=== PATIENT | female | born 1985 | race Caucasian/White ===

== ENCOUNTER → 2016-07-15 | Outpatient (CLI) | payer BC | LOC: MW.CHPS 12:31 | PROVIDERS: ATTEND Plastic Surgery | DX: D86.3 Sarcoidosis of skin (principal) | CPT/HCPCS: 71020 ==

== ENCOUNTER → 2016-07-18 | Outpatient (CLI) | payer BC ==
--- NOTE | 2016-07-18 10:42 | CR ---
EXAMINATION: Two-view chest (PA and Lateral views). HISTORY: Sarcoidosis of the skin FINDINGS: The trachea is midline. The cardiomediastinal silhouette is within normal limits. No pulmonary infil trates, effusions or pneumothorax. Osseous structures appear unremarkable. IMPRESSION: No acute cardiopulmonary process.
== END ==
LOC: MW.DI 08:09
PROVIDERS: ATTEND Plastic Surgery
DX: D86.3 Sarcoidosis of skin (principal)
CPT/HCPCS: 71020; 71020-26

== ENCOUNTER 2018-07-05 17:05 | Inpatient (IN) | payer BC ==
[2018-07-05] MEDS ORDERED: Carboprost Tromethamine 250 MCG/1 ML Amp IM PRN (17:13)
[2018-07-05] MEDS ORDERED: Sodium Chloride 0.9% 10 ML SDV IV PRN (17:13)
[2018-07-05] MEDS ORDERED: Nalbuphine 10 MG/1 ML Vial IVPUSH PRN (17:13)
[2018-07-05] MEDS ORDERED: Water For Irrigation,Sterile 1,000 ML Container IRR PRN (17:13)
[2018-07-05] MEDS ORDERED: Butorphanol 1 MG/ML SDV IVPUSH PRN (17:13)
[2018-07-05] MEDS ORDERED: Ondansetron 4 MG/2 ML SDV IV PRN (17:13)
[2018-07-05] MEDS ORDERED: Misoprostol 200 MCG Tab PO PRN (17:13)
[2018-07-05] MEDS ORDERED: Sodium Chloride 0.9% 2.5 ML Syringe FLUSH PRN (17:13)
[2018-07-05] MEDS ORDERED: Tranexamic Acid 1,000 MG in Sodium Chloride 0.9% 100 ML IV PRN (17:13)
[2018-07-05] MEDS ORDERED: Sodium Chloride 0.9% 10 ML Syringe FLUSH PRN (17:13)
[2018-07-05] MEDS ORDERED: Lidocaine 1% 50 ML MDV INJECT PRN (17:13)
[2018-07-05] MEDS ORDERED: Methylergonovine 0.2 MG/1 ML Amp IM PRN (17:13)
[2018-07-05] MEDS ORDERED: Oxytocin/0.9 % Sodium Chloride 30 UNIT/500 ML BAG IV SCH ×2 (17:15→18:30)
--- NOTE | 2018-07-05 18:20 | PCM.LDHP ---
L&D History of Present Illness - General Date of Service: 07/05/18 Admit Problem/Dx: Patient Status Order with Admit Dx/Problem 07/05/18 17:13 Patient Status [ADT] Routine Admission Diagnosis/Problem Admission Diagnosis/Problem 07/05/18 18:14 32yo EDC 07/05/2018 40 0/7wks SROM clear at 0900 today, A+, RI, GBS neg. Source of Information: Patient History Limitations: Reports: No Limitations - History of Present Illness Improves with: Reports: None Worsens with: Reports: None Associated Symptoms: Reports: N - Related Data Allergies/Adverse Reactions: Allergies Allergy/AdvReac Type Severity Reaction Status Date / Time No Known Allergies Allergy Verified 07/21/15 11:53 Home Medications: Home Meds Pnv95/Iron Fum/Folic Acid [ Caplet] 1 cap PO DAILY 07/21/15 [History] Past Medical History - Past Health History Medical/Surgical History: Denies Medical/Surgical History HEENT History: Reports: None Cardiovascular History: Reports: None Respiratory History: Reports: None Gastrointestinal History: Reports: None Genitourinary History: Reports: None 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: , Other (See Below) Other OB/BYN History: ovarian cyst, infertility Musculoskeletal History: Reports: None Psychiatric History: Reports: None Hematologic History: Reports: None Dermatologic History: Reports: None - Past Surgical History HEENT Surgical History: Reports: Oral Surgery Social & Family History - Family History Family Medical History: Noncontributory HEENT: Reports: None Cardiac: Reports: None Respiratory: Reports: None GI: Reports: None : Reports: None OBGYN: Reports: None Musculoskeletal: Reports: None Neurological: Reports: None Psychiatric: Reports: None Endocrine/Metabolic: Reports: None Hematologic: Reports: None Immunologic: Reports: None Dermatologic: Reports: None Oncologic: Reports: None H&P Review of Systems - Review of Systems: Review Of Systems: See Below General: Reports: No Symptoms HEENT: Reports: No Symptoms Pulmonary: Reports: No Symptoms Cardiovascular: Reports: No Symptoms Gastrointestinal: Reports: No Symptoms Genitourinary: Reports: No Symptoms Musculoskeletal: Reports: No Symptoms Skin: Reports: No Symptoms Psychiatric: Reports: No Symptoms Neurological: Reports: No Symptoms Hematologic/Lymphatic: Reports: No Symptoms Immunologic: Reports: No Symptoms L&D Exam - Exam Exam: See Below - OB Specific Contraction Intensity: Irritability Movement: Active Heart Tones: Present Heart Rate (FHR) Variability: Moderate (6-25 bmp) Presentation: Vertex - Evans Score Evans Score Cervix Position: Posterior Evans Score Consistency: Soft Evans Score Effacement: >80% Evans Score Dilation: 3-4 cm Evans Score 's Station: -2 Evans Score Total: 8 - Exam General: Alert, Oriented, Cooperative HEENT: Hearing Intact Lungs: Normal Respiratory Effort GI/Abdominal Exam: Soft, Non-Tender Rectal Exam: Deferred Genitourinary: Normal external exam, Normal bimanual exam, Cervical dilitation, Cervical fluid Back Exam: Normal Inspection, Full Range of Motion Extremities: Normal Inspection, Normal Range of Motion, Non-Tender, No Pedal Edema Skin: Warm, Dry, Intact Neurological: Cranial Nerves Intact, Normal Speech, Normal Tone Psychiatric: Alert, Normal Affect, Normal Mood - Patient Data Lab Results Last 24 hrs: Laboratory Results - last 24 hr 07/05/18 Range/Units 17:35 WBC 9.89 (4.0-11.0) K/uL RBC 3.52 L (4.30-5.90) M/uL Hgb 10.4 L (12.0-16.0) g/dL Hct 31.8 L (36.0-46.0) % MCV 90.3 (80.0-98.0) fL MCH 29.5 (27.0-32.0) pg MCHC 32.7 (31.0-37.0) g/dL RDW Std Deviation 44.8 (28.0-62.0) fl RDW Coeff of Pérez 14 (11.0-15.0) % Plt Count 270 (150-400) K/uL MPV 9.70 (7.40-12.00) fL Nucleated RBC % 0.0 /100WBC Nucleated RBCs # 0 K/uL Result Diagrams: 07/05/18 17:35 - Problem List (1) Supervision of normal IUP (intrauterine ) in multigravida SNOMED Code(s): 549435691, 858504721, 769926521 ICD Code: Z34.80 - ENCOUNTER FOR SUPRVSN OF NORMAL , UNSP TRIMESTER Status: Acute Priority: High Current Visit: Yes Qualifiers: Trimester: third trimester Qualified Code(s): Z34.83 - Encounter for supervision of other normal , third trimester (2) SROM (spontaneous rupture of membranes) SNOMED Code(s): 818508189 ICD Code: [id number] - Status: Acute Priority: High Current Visit: Yes Problem List Initiated/Reviewed/Updated: Yes Orders Last 24hrs: Active Orders 24 hr Category Date Time Status Patient Status [ADT] Routine ADT 07/05/18 17:13 Active Heart Tones [RC] CONTINUOUS Care 07/05/18 17:13 Active Non Stress Test [RC] PER UNIT ROUTINE Care 07/05/18 17:13 Active May Shower [RC] ASDIRECTED Care 07/05/18 17:13 Active Notify Provider [RC] PRN Care 07/05/18 17:13 Active Up ad Yenifer [RC] ASDIRECTED Care 07/05/18 17:13 Active Vaginal Exam [RC] PRN Care 07/05/18 17:13 Active Vital Signs [RC] PER UNIT ROUTINE Care 07/05/18 17:13 Active TYPE AND SCREEN [BBK] Routine Lab 07/05/18 17:35 Received Butorphanol [Stadol] Med 07/05/18 17:13 Active 1 mg IVPUSH Q1H PRN Carboprost Tromethamine [Hemabate DS] Med 07/05/18 17:13 Active 250 mcg IM ASDIRECTED PRN Lactated Ringers [Ringers, Lactated] 1,000 ml Med 07/05/18 17:15 Active IV ASDIRECTED Lidocaine 1% [Xylocaine 1%] Med 07/05/18 17:13 Active 50 ml INJECT ONETIME PRN Methylergonovine [Methergine] Med 07/05/18 17:13 Active 0.2 mg IM ASDIRECTED PRN Nalbuphine [Nubain] Med 07/05/18 17:13 Active 10 mg IVPUSH Q1H PRN Ondansetron [Zofran] Med 07/05/18 17:13 Active 4 mg IV Q6H PRN Oxytocin/0.9 % Sodium Chloride [Oxytocin 30 Unit/500 ML Med 07/05/18 17:15 Active -NS] 30 unit in 500 ml IV TITRATE Sodium Chloride 0.9% [Normal Saline] Med 07/05/18 17:13 Active 10 ml IV ASDIRECTED PRN Sodium Chloride 0.9% [Saline Flush] Med 07/05/18 17:13 Active 10 ml FLUSH ASDIRECTED PRN Sodium Chloride 0.9% [Saline Flush] Med 07/05/18 17:13 Active 2.5 ml FLUSH ASDIRECTED PRN Tranexamic Acid [Cyklokapron] 1,000 mg Med 07/05/18 17:13 Active Sodium Chloride 0.9% [Normal Saline] 100 ml IV ONETIME Water For Irrigation,Sterile [Sterile Water for Med 07/05/18 17:13 Active Irrigation] 1,000 ml IRR ASDIRECTED PRN miSOPROStol [Cytotec] Med 07/05/18 17:13 Active 200 mcg PO ONETIME PRN Scalp Electrode [WOMSER] Per Unit Routine Oth 07/05/18 17:13 Ordered Peripheral IV Insertion Adult [OM.PC] Routine Oth 07/05/18 17:13 Ordered Resuscitation Status Routine Resus Stat 07/05/18 17:13 Ordered Medication Orders Butorphanol Tartrate (Stadol) 1 mg IVPUSH Q1H PRN PRN Reason: Pain Carboprost Tromethamine (Hemabate Ds) 250 mcg IM ASDIRECTED PRN PRN Reason: Post Hemorrhage Lactated Ringer's (Ringers, Lactated) 1,000 mls @ 150 mls/hr IV ASDIRECTED BALA Oxytocin/Sodium Chloride (Oxytocin 30 Unit/500 Ml-Ns) 30 unit in 500 mls @ 999 mls/hr IV TITRATE BALA Tranexamic Acid 1,000 mg/ (Sodium Chloride) 110 mls @ 660 mls/hr IV ONETIME PRN PRN Reason: Bleeding Lidocaine HCl (Xylocaine 1%) 50 ml INJECT ONETIME PRN PRN Reason: Laceration repair Methylergonovine Maleate (Methergine) 0.2 mg IM ASDIRECTED PRN PRN Reason: Post Hemorrhage Misoprostol (Cytotec) 200 mcg PO ONETIME PRN PRN Reason: Post Hemorrhage Nalbuphine HCl (Nubain) 10 mg IVPUSH Q1H PRN PRN Reason: Pain (severe 7-10) Ondansetron HCl (Zofran) 4 mg IV Q6H PRN PRN Reason: Nausea/Vomiting Sodium Chloride (Saline Flush) 10 ml FLUSH ASDIRECTED PRN PRN Reason: Keep Vein Open Sodium Chloride (Saline Flush) 2.5 ml FLUSH ASDIRECTED PRN PRN Reason: Keep Vein Open Sodium Chloride (Normal Saline) 10 ml IV ASDIRECTED PRN PRN Reason: IV Use Sterile Water (Sterile Water For Irrigation) 1,000 ml IRR ASDIRECTED PRN PRN Reason: delivery Assessment/Plan Comment:: SROM Labor A: 32yo EDC 07/05/2018 40 0/7wks SROM clear at 0900 today, A+, RI, GBS neg. P: Admit, epidural prn, pitocin, will start amp if not delivered by 0300. Antic[address] . Dr Gutiérrez updated
[2018-07-05] MEDS ORDERED: Terbutaline 1 MG/ML SDV SUBCUT PRN (18:21)
[2018-07-05] MEDS ORDERED: Misoprostol 25 MCG (1/4 of 100 MCG) Tab PO PRN (18:38)
[2018-07-05] MEDS ORDERED: Misoprostol 25 MCG (1/4 of 100 MCG) Tab VAG PRN (18:38)
[2018-07-05] MEDS: Lactated Ringers 1,000 ML IV SCH ×2 (19:20→23:07)
[2018-07-06] MEDS ORDERED: fentaNYL 100 MCG/2 ML SDV ONE (00:02)
[2018-07-06] MEDS ORDERED: Ropivacaine HCl/PF 100 ML ONE (00:02)
--- NOTE | 2018-07-06 00:47 | PCM.PREANE ---
Preanesthetic Assessment - Anesthesia/Transfusion/Family Hx Anesthesia History: Prior Anesthesia Without Reaction Family History of Anesthesia Reaction: No Transfusion History: No Prior Transfusion(s) Intubation History: Unknown - Review of Systems General: No Symptoms Pulmonary: No Symptoms Cardiovascular: No Symptoms Gastrointestinal: No Symptoms Neurological: No Symptoms Other: Reports: None - Physical Assessment NPO Status Date: 07/06/18 NPO Status Time: 00:00 Blood Pressure: 118/73 Height: 5 ft 9 in Weight: 172 lb ASA Class: 2 Mental Status: Alert & Oriented x3 Airway Class: Mallampati = 2 Dentition: Reports: Normal Dentition Thyro-Mental Finger Breadths: 3 Mouth Opening Finger Breadths: 3 - Lab Values: Laboratory Last Values WBC 9.89 K/uL (4.0-11.0) 07/05/18 17:35 RBC 3.52 M/uL (4.30-5.90) L 07/05/18 17:35 Hgb 10.4 g/dL (12.0-16.0) L 07/05/18 17:35 Hct 31.8 % (36.0-46.0) L 07/05/18 17:35 MCV 90.3 fL (80.0-98.0) 07/05/18 17:35 MCH 29.5 pg (27.0-32.0) 07/05/18 17:35 MCHC 32.7 g/dL (31.0-37.0) 07/05/18 17:35 RDW Std Deviation 44.8 fl (28.0-62.0) 07/05/18 17:35 RDW Coeff of Pérez 14 % (11.0-15.0) 07/05/18 17:35 Plt Count 270 K/uL (150-400) 07/05/18 17:35 MPV 9.70 fL (7.40-12.00) 07/05/18 17:35 Nucleated RBC % 0.0 /100WBC 07/05/18 17:35 Nucleated RBCs # 0 K/uL 07/05/18 17:35 Blood Type A POSITIVE 07/05/18 17:35 Antibody Screen NEGATIVE 07/05/18 17:35 - Allergies Allergies/Adverse Reactions: Allergies Allergy/AdvReac Type Severity Reaction Status Date / Time No Known Allergies Allergy Verified 07/21/15 11:53 - Blood Blood Available: No Product(s) Available: None - Anesthesia Plan Free Text/Narrative:: Labor Epidural Pre-Op Medication Ordered: None - Acknowledgements Anesthesia Type Planned: Epidural Pt an Appropriate Candidate for the Planned Anesthesia: Yes Alternatives and Risks of Anesthesia Discussed w Pt/Guardian: Yes Pt/Guardian Understands and Agrees with Anesthesia Plan: Yes PreAnesthesia Questionnaire - Past Health History Medical/Surgical History: Denies Medical/Surgical History HEENT History: Reports: None Cardiovascular History: Reports: None Respiratory History: Reports: None Gastrointestinal History: Reports: None Genitourinary History: Reports: None Other Genitourinary History: "Kidney stones, maybe a decade ago" 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: , Other (See Below) Other OB/BYN History: ovarian cyst, infertility Musculoskeletal History: Reports: None Psychiatric History: Reports: None Other Psychiatric History: was treated years ago, no longer in treatment Hematologic History: Reports: Anemia Dermatologic History: Reports: None - Infectious Disease History Infectious Disease History: Reports: Chicken Pox - Past Surgical History HEENT Surgical History: Reports: Oral Surgery - SUBSTANCE USE Smoking Status *Q: Never Smoker Second Hand Smoke Exposure: No Recreational Drug Use History: No - HOME MEDS Home Medications: Home Meds Pnv95/Iron Fum/Folic Acid [ Caplet] 1 cap PO DAILY 07/21/15 [History] - CURRENT (IN HOUSE) MEDS Current Meds: Current Medications Butorphanol Tartrate (Stadol) 1 mg IVPUSH Q1H PRN PRN Reason: Pain Carboprost Tromethamine (Hemabate Ds) 250 mcg IM ASDIRECTED PRN PRN Reason: Post Hemorrhage Lactated Ringer's (Ringers, Lactated) 1,000 mls @ 150 mls/hr IV ASDIRECTED BALA Last Admin: 07/05/18 23:07 Dose: 999 mls/hr Oxytocin/Sodium Chloride (Oxytocin 30 Unit/500 Ml-Ns) 30 unit in 500 mls @ 999 mls/hr IV TITRATE BALA Tranexamic Acid 1,000 mg/ (Sodium Chloride) 110 mls @ 660 mls/hr IV ONETIME PRN PRN Reason: Bleeding Oxytocin/Sodium Chloride (Oxytocin 30 Unit/500 Ml-Ns) 30 unit in 500 mls @ 2 mls/hr IV TITRATE BALA; Protocol Last Titration: 07/05/18 22:55 Dose: 4 munits/min, 4 mls/hr Lidocaine HCl (Xylocaine 1%) 50 ml INJECT ONETIME PRN PRN Reason: Laceration repair Methylergonovine Maleate (Methergine) 0.2 mg IM ASDIRECTED PRN PRN Reason: Post Hemorrhage Misoprostol (Cytotec) 200 mcg PO ONETIME PRN PRN Reason: Post Hemorrhage Misoprostol (Cytotec) 25 mcg VAG ONETIME PRN PRN Reason: Cervical Ripening Last Admin: 07/05/18 18:52 Dose: 25 mcg Misoprostol (Cytotec) 25 mcg PO ONETIME PRN PRN Reason: Cervical Ripening Last Admin: 07/05/18 18:49 Dose: 25 mcg Nalbuphine HCl (Nubain) 10 mg IVPUSH Q1H PRN PRN Reason: Pain (severe 7-10) Ondansetron HCl (Zofran) 4 mg IV Q6H PRN PRN Reason: Nausea/Vomiting Sodium Chloride (Saline Flush) 10 ml FLUSH ASDIRECTED PRN PRN Reason: Keep Vein Open Sodium Chloride (Saline Flush) 2.5 ml FLUSH ASDIRECTED PRN PRN Reason: Keep Vein Open Sodium Chloride (Normal Saline) 10 ml IV ASDIRECTED PRN PRN Reason: IV Use Sterile Water (Sterile Water For Irrigation) 1,000 ml IRR ASDIRECTED PRN PRN Reason: delivery Terbutaline Sulfate (Brethine) 0.25 mg SUBCUT ASDIRECTED PRN PRN Reason: Tacysystole Discontinued Medications Fentanyl (Sublimaze) Confirm Administered Dose 100 mcg .ROUTE .STK-MED ONE Stop: 07/06/18 00:03 Ropivacaine (Naropin 0.2%) Confirm Administered Dose 100 mls @ as directed .ROUTE .STK-MED ONE Stop: 07/06/18 00:03
[2018-07-06] MEDS: Lactated Ringers 1,000 ML IV SCH ×3 (01:10→03:11)
[2018-07-06] MEDS ORDERED: ePHEDrine 50 MG/ML SDV ONE (01:41)
[2018-07-06] MEDS ORDERED: Ampicillin 2 GM in Sodium Chloride 0.9% 100 ML IV ONE (03:00)
[2018-07-06] MEDS ORDERED: Ampicillin 2 GM AdvVial IV ONE (03:05)
[2018-07-06] MEDS ORDERED: Sodium Chloride 0.9% 100 ML ONE (03:05)
[2018-07-06] MEDS ORDERED: Ampicillin 1 GM in Sodium Chloride 0.9% 50 ML IV SCH (07:00)
[2018-07-06] MEDS ORDERED: Docusate Sodium 100 MG Cap PO PRN (11:20)
[2018-07-06] MEDS ORDERED: Benzocaine/Menthol 20%-0.5% Spray 78 GM Cannister TOP PRN (11:20)
[2018-07-06] MEDS ORDERED: Witch Hazel Medicated Pads 40/Jar TOP PRN (11:20)
[2018-07-06] MEDS ORDERED: Ibuprofen 800 MG Tab PO PRN (11:20)
[2018-07-06] MEDS ORDERED: Ibuprofen 400 MG Tab PO PRN (11:20)
[2018-07-06] MEDS ORDERED: Bisacodyl 10 MG Supp RECTAL PRN (11:20)
[2018-07-06] MEDS ORDERED: Acetaminophen 500 MG Tab PO PRN ×2 (11:20)
[2018-07-06] MEDS ORDERED: Lanolin 100% Cream 7 GM Tube TOP PRN (11:20)
[2018-07-06] MEDS ORDERED: oxyCODONE 5 MG Tab PO PRN (11:20)
--- NOTE | 2018-07-06 17:03 | OR ---
SURGEON: Alexander Gutiérrez MD DATE OF PROCEDURE: DELIVERY NOTE: Lucie is a 32-year-old patient. She is para 1-0-0-1. She is followed in our clinic primarily by our nurse human resources compliance manager. The patient is admitted in active labor and at the time of the admission, she is 5 to 6 cm. She progressed and then she had epidural anesthesia for labor analgesia. The patient became complete- complete. She had rupture of the membrane with clear fluid. After she became complete-complete, she pushed 3-1/2 hours without any accomplishing of vaginal delivery. I was asked for consultation and assessment. When I examined the patient, she was complete-complete, vertex, 0 to +1 station and she was occiput posterior. Presented the fact to the patient and her and we agreed to do a vacuum extraction and after obtaining the consent of the parent, the patient was placed in lithotomy position, and bladder was emptied and Kiwi vacuum extraction is applied easily without any problem with the patient , and I am trying to guiding the head down with pulling. I was able to accomplish a vaginal with 2 pulls without any problem. Perineal first- degree laceration is happened during the process of the delivery. The fetus cried immediately. score and the weight are not available at this time. The placenta delivered spontaneous, complete, and intact and the first-degree laceration was repaired with 3-0 Vicryl in layer without any problem. ESTIMATED BLOOD LOSS: 250 to 300 mL. heart rate was category 1 through the entire process of labor. At the time of the delivery, it is noted that the patient had 2 nuchal cord. There was no complication in the labor and delivery of this patient. ABELINO / NICOLE /[id number]
--- NOTE | 2018-07-07 08:54 | PCM.DCSUM1 ---
Discharge Summary - Hospital Course Free Text/Narrative:: Discharge home with . Follow up 6 weeks for . Diagnosis: Stroke: No - Discharge Data Discharge Date: 07/07/18 Discharge Disposition: Home, Self-Care 01 Condition: Good - Discharge Diagnosis/Problem(s) (1) Supervision of normal IUP (intrauterine ) in multigravida SNOMED Code(s): 758802246, 538212414, 467525978 ICD Code: Z34.80 - ENCOUNTER FOR SUPRVSN OF NORMAL , UNSP TRIMESTER Status: Acute Priority: High Current Visit: Yes Qualifiers: Trimester: third trimester Qualified Code(s): Z34.83 - Encounter for supervision of other normal , third trimester (2) SROM (spontaneous rupture of membranes) SNOMED Code(s): 004664487 ICD Code: DTS8100 - Status: Acute Priority: High Current Visit: Yes - Patient Instructions Diet: Usual Diet as Tolerated Activity: As Tolerated, No Strenuous Activities, Rest and Relax Today Driving: May Drive Today Showering/Bathing: May Shower Notify Provider of: Fever, Increased Pain, Swelling and Redness, Nausea and/or Vomiting Other/Special Instructions: Discharge home with infant. Follow up 6 weeks for . - Discharge Plan *PRESCRIPTION DRUG MONITORING PROGRAM REVIEWED*: Not Applicable *COPY OF PRESCRIPTION DRUG MONITORING REPORT IN PATIENT JULIAN: Not Applicable Prescriptions/Med Rec: Ibuprofen [Motrin] 800 mg PO Q6H PRN #90 tablet PRN Reason: Pain Home Medications: Home Meds Pnv95/Iron Fum/Folic Acid [ Caplet] 1 cap PO DAILY 07/21/15 [History] Ibuprofen [Motrin] 800 mg PO Q6H PRN #90 tablet 07/07/18 [Rx] Oxygen Therapy Mode: Room Air Referrals: [facility] [Outside] Gilma Villasenor CNM [Mid-] - 08/17/18 9:30 am (6 week post ) - Discharge Summary/Plan Comment DC Time >30 min.: Yes - General Info Date of Service: 07/07/18 Admission Dx/Problem (Free Text: Patient Status Order with Admit Dx/Problem 07/05/18 17:13 Patient Status [ADT] Routine Admission Diagnosis/Problem Admission Diagnosis/Problem 07/05/18 18:14 32yo EDC 07/05/2018 40 0/7wks SROM clear at 0900 today, A+, RI, GBS neg. Functional Status: Reports: Pain Controlled, Tolerating Diet, Ambulating, Urinating - Review of Systems General: Reports: No Symptoms HEENT: Reports: No Symptoms Pulmonary: Reports: No Symptoms Cardiovascular: Reports: No Symptoms Gastrointestinal: Reports: No Symptoms Genitourinary: Reports: No Symptoms Musculoskeletal: Reports: No Symptoms Skin: Reports: No Symptoms Neurological: Reports: No Symptoms Psychiatric: Reports: No Symptoms - Patient Data Vitals - Most Recent: Last Vital Signs Temp 36.8 C 07/07/18 07:30 Pulse 87 07/07/18 07:30 Resp 16 07/07/18 07:30 BP 112/59 L 07/07/18 07:30 Pulse Ox 97 07/07/18 07:30 Weight - Most Recent: 78.018 kg Lab Results - Last 24 hrs: Laboratory Results - last 24 hr 07/07/18 Range/Units 04:57 Hgb 10.0 L (12.0-16.0) g/dL Hct 31.2 L (36.0-46.0) % Med Orders - Current: Current Medications Acetaminophen (Tylenol Extra Strength) 500 mg PO Q4H PRN PRN Reason: Pain Acetaminophen (Tylenol Extra Strength) 1,000 mg PO Q4H PRN PRN Reason: Pain Last Admin: 07/06/18 19:57 Dose: 1,000 mg Benzocaine/Menthol (Dermoplast Pain Relief 20%-0.5% [place]) 78 gm TOP ASDIRECTED PRN PRN Reason: Perineal Comfort Measure Last Admin: 07/06/18 14:38 Dose: 1 can Bisacodyl (Dulcolax) 10 mg RECTAL ONETIME PRN PRN Reason: Constipation Butorphanol Tartrate (Stadol) 1 mg IVPUSH Q1H PRN PRN Reason: Pain Carboprost Tromethamine (Hemabate Ds) 250 mcg IM ASDIRECTED PRN PRN Reason: Post Hemorrhage Docusate Sodium (Colace) 100 mg PO BID PRN PRN Reason: Constipation Emollient Ointment (Lansinoh Hpa) 0 gm TOP ASDIRECTED PRN PRN Reason: Sore Nipples Lactated Ringer's (Ringers, Lactated) 1,000 mls @ 150 mls/hr IV ASDIRECTED BALA Last Admin: 07/06/18 03:11 Dose: 150 mls/hr Oxytocin/Sodium Chloride (Oxytocin 30 Unit/500 Ml-Ns) 30 unit in 500 mls @ 999 mls/hr IV TITRATE BALA Tranexamic Acid 1,000 mg/ (Sodium Chloride) 110 mls @ 660 mls/hr IV ONETIME PRN PRN Reason: Bleeding Oxytocin/Sodium Chloride (Oxytocin 30 Unit/500 Ml-Ns) 30 unit in 500 mls @ 2 mls/hr IV TITRATE [facility]; Protocol Last Titration: 07/06/18 06:30 Dose: 20 munits/min, 20 mls/hr Ampicillin Sodium 1 gm/ Sodium (Chloride) 50 mls @ 100 mls/hr IV Q4H BALA Last Admin: 07/06/18 07:16 Dose: 100 mls/hr Ibuprofen (Motrin) 400 mg PO Q4H PRN PRN Reason: Pain Ibuprofen (Motrin) 800 mg PO Q6H PRN PRN Reason: Pain Last Admin: 07/06/18 14:37 Dose: 800 mg Lidocaine HCl (Xylocaine 1%) 50 ml INJECT ONETIME PRN PRN Reason: Laceration repair Methylergonovine Maleate (Methergine) 0.2 mg IM ASDIRECTED PRN PRN Reason: Post Hemorrhage Misoprostol (Cytotec) 200 mcg PO ONETIME PRN PRN Reason: Post Hemorrhage Misoprostol (Cytotec) 25 mcg VAG ONETIME PRN PRN Reason: Cervical Ripening Last Admin: 07/05/18 18:52 Dose: 25 mcg Misoprostol (Cytotec) 25 mcg PO ONETIME PRN PRN Reason: Cervical Ripening Last Admin: 07/05/18 18:49 Dose: 25 mcg Nalbuphine HCl (Nubain) 10 mg IVPUSH Q1H PRN PRN Reason: Pain (severe 7-10) Ondansetron HCl (Zofran) 4 mg IV Q6H PRN PRN Reason: Nausea/Vomiting Oxycodone HCl (Oxycodone) 5 mg PO Q2H PRN PRN Reason: Pain Sodium Chloride (Saline Flush) 10 ml FLUSH ASDIRECTED PRN PRN Reason: Keep Vein Open Sodium Chloride (Saline Flush) 2.5 ml FLUSH ASDIRECTED PRN PRN Reason: Keep Vein Open Sodium Chloride (Normal Saline) 10 ml IV ASDIRECTED PRN PRN Reason: IV Use Sterile Water (Sterile Water For Irrigation) 1,000 ml IRR ASDIRECTED PRN PRN Reason: delivery Terbutaline Sulfate (Brethine) 0.25 mg SUBCUT ASDIRECTED PRN PRN Reason: Tacysystole Witch Dyana (Tucks) 1 pad TOP ASDIRECTED PRN PRN Reason: comfort care Last Admin: 07/06/18 14:37 Dose: 1 tub Discontinued Medications Ampicillin Sodium (Ampicillin) Confirm Administered Dose 2 gm IV .STK-MED ONE Stop: 07/06/18 03:06 Ephedrine Sulfate (Ephedrine Sulfate) Confirm Administered Dose 50 mg .ROUTE .STK-MED ONE Stop: 07/06/18 01:42 Fentanyl (Sublimaze) Confirm Administered Dose 100 mcg .ROUTE .STK-MED ONE Stop: 07/06/18 00:03 Ropivacaine (Naropin 0.2%) Confirm Administered Dose 100 mls @ as directed .ROUTE .STK-MED ONE Stop: 07/06/18 00:03 Ampicillin Sodium 2 gm/ Sodium (Chloride) 100 mls @ 200 mls/hr IV ONETIME ONE Stop: 07/06/18 03:29 Last Admin: 07/06/18 03:09 Dose: 200 mls/hr Sodium Chloride (Normal Saline) Confirm Administered Dose 100 mls @ as directed .ROUTE .STK-MED ONE Stop: 07/06/18 03:06 - Exam General: Reports: Alert, Oriented, Cooperative, No Acute Distress Lungs: Reports: Normal Respiratory Effort GI/Abdominal Exam: Soft, Non-Tender (Female) Exam: Deferred, Vaginal Bleeding Rectal (Female) Exam: Deferred Back Exam: Reports: Normal Inspection, Full Range of Motion Extremities: Normal Inspection, Normal Range of Motion, Non-Tender, No Pedal Edema Skin: Reports: Warm, Dry, Intact Neurological: Reports: No New Focal Deficit, Normal Speech, Normal Tone, Strength Equal Bilateral Psy/Mental Status: Reports: Alert, Normal Affect, Normal Mood
[2018-07-07 13:33] VITALS: BP 118/73
--- NOTE | 2018-07-07 13:33 | PCM48HPAN ---
Post Anesthesia Note - EVALUATION WITHIN 48HRS OF ANESTHETIC Vital Signs in Normal Range: Yes Patient Participated in Evaluation: Yes Respiratory Function Stable: Yes Airway Patent: Yes Cardiovascular Function Stable: Yes Hydration Status Stable: Yes Pain Control Satisfactory: Yes Nausea and Vomiting Control Satisfactory: Yes Mental Status Recovered: Yes Resp Rate: 16 Blood Pressure: 118/73
== END 2018-07-07 14:15 | disposition home or self-care (01) | DRG 560 ==
LOC: MW.OBCHECK 17:05 → MW.OB 17:09 → MW.OBCHECK 07-06 03:00 → MW.OB 07-06 03:00 → OBSVTOIN 07-06 11:02 → MW.OB 07-06 17:33
PROVIDERS: ADMIT Obstetrics & Gynecology; ATTEND Obstetrics & Gynecology
PROC: 10D07Z6 Extraction of Products of Conception, Vacuum, Via Natural or Artificial Opening (ICD-10-PCS; principal; 2018-07-05)
PROC: 0HQ9XZZ Repair Perineum Skin, External Approach (ICD-10-PCS; 2018-07-05)
DX: O69.81X0 Labor and delivery complicated by cord around neck, without compression, not applicable or unspecified (principal); O70.0 First degree perineal laceration during delivery; Z3A.40 40 weeks gestation of pregnancy; Z37.0 Single live birth
CPT/HCPCS: 36415; 51702; 59025; 59409; 85014; 85018; 85027; 86850; 86900; 86901; A9270-GY; J0290; J2590; J2795; J3010; J7030; J7050; J7120